=== PATIENT | male | born 1960 | race American Indian/Alaskan Native ===

== ENCOUNTER 2019-01-22 08:43 | Outpatient (CLI) | payer BC ==
[2019-01-22 09:29] LABS: Blood Urea Nitrogen 11 mg/dL (9-20)
--- NOTE | 2019-01-22 12:36 | Cat Scan Report ---
CT ABDOMEN AND PELVIS WITHOUT CONTRAST HISTORY: C61 PROSTATE CANCER COMPARISON: None. TECHNIQUE: Axial CT images were obtained through the abdomen and pelvis without IV contrast. Sagittal and coronal reformatted images. All CT scans at this location are performed using CT dose reduction for ALARA by means of automated exposure control. FINDINGS: CT ABDOMEN: Lung Bases: Clear. Liver: No significant abnormality. Biliary: No significant abnormality. Spleen: No significant abnormality. Unenlarged. Pancreas: No significant abnormality. Adrenals: No significant abnormality. Kidneys: Multiple small bilateral renal parapelvic cysts are identified. There is an intermediate den sity 1.9 cm rounded lesion in the anterior left kidney near mid pole. A similar appearing 1.7 cm exop hytic lesion is seen from the inferior pole of the left kidney. These probably represent small slight ly complex cysts. No obstructive uropathy. Lymphatics: No lymphadenopathy. Vasculature: No significant abnormality. Bowel/Peritoneum: There are scattered diverticula throughout the right hemicolon. No evidence for bow el obstruction, inflammation, free fluid or free air. Normal appendix. CT PELVIS: : The prostate gland is mildly enlarged measuring 5.4 cm in diameter. The bladder is mostly empty b ut there does appear to be diffuse bladder wall thickening. This probably represents trabeculation. C orrelate for cystitis. Osseous Structures: Mild thoracolumbar spondylosis. No suspicious lytic or blastic bony lesion is det ected on CT. Additional Findings: None IMPRESSION: No evidence for metastatic disease. Renal cysts as described above. Mild diverticulosis of the right hemicolon. Thickened bladder wall. Trabeculation versus cystitis. Signer Name: Dandre Rosario Jr, MD Signed: 01/22/2019 12:31 PM Workstation Name: [id number]
== END 2019-01-22 08:44 | disposition home or self-care (01) ==
LOC: CT 08:43
PROVIDERS: ATTEND Urology
DX: C61 Malignant neoplasm of prostate (principal); N28.1 Cyst of kidney, acquired; K57.30 Diverticulosis of large intestine without perforation or abscess without bleeding; M47.815 Spondylosis without myelopathy or radiculopathy, thoracolumbar region
CPT/HCPCS: 36415; 74176; 82565; 84520

== ENCOUNTER 2021-12-08 06:55 | Outpatient (CLI) | payer BC ==
--- NOTE | 2021-12-08 08:46 | Cat Scan Report ---
CT ABDOMEN AND PELVIS WITHOUT CONTRAST HISTORY: C61. Restaging of prostate cancer. COMPARISON: 01/22/2019 TECHNIQUE: Axial CT images were obtained through the abdomen and pelvis without IV contrast. Sagittal and coronal reformatted images. All CT scans at this location are performed using CT dose reduction for ALARA by means of automated exposure control. FINDINGS: CT ABDOMEN: Lung Bases: Clear. Liver: No significant abnormality. Biliary: No significant abnormality. Spleen: No significant abnormality. Unenlarged. Pancreas: No significant abnormality. Adrenals: No significant abnormality. Kidneys: Multiple renal sinus parapelvic cysts are again seen and unchanged. 1.9 cm and 1.7 cm interm ediate density cysts in the left kidney are unchanged and likely represents a hemorrhagic cysts. No n ephrolithiasis or hydronephrosis. Lymphatics: No lymphadenopathy. Vasculature: No significant abnormality. Bowel/Peritoneum: No significant abnormality. No free air. No free fluid. CT PELVIS: : The bladder and distal ureters are unremarkable. Stable mild prostatomegaly. Osseous Structures: There is a new 8 mm sclerotic lesion in the right sacral ala on image 134, series 2. No additional bony lesions are appreciated. Mild thoracolumbar spondylosis is stable. Additional Findings: None IMPRESSION: Slightly suspicious, new 8 mm sclerotic focus in the right sacral ala. No visceral mass or adenopathy . Otherwise no change since 01/22/2019 exam. Signer Name: Dandre Rosario Jr, MD Signed: 12/08/2021 8:42 AM Workstation Name: [id number]
== END 2021-12-08 06:56 | disposition home or self-care (01) ==
LOC: CT 06:55
PROVIDERS: ATTEND Urology
DX: C61 Malignant neoplasm of prostate (principal); N28.1 Cyst of kidney, acquired; N40.0 Benign prostatic hyperplasia without lower urinary tract symptoms
CPT/HCPCS: 74176